=== PATIENT | male | born 1955 | race Caucasian/White ===

== ENCOUNTER 2022-04-22 18:37 | Emergency (ER) | payer OTHER, MEDICARE ==
[2022-04-22] MEDS ORDERED: HYDROcodone/Acetaminophen 5/325 mg Tablet ONE (21:53)
[2022-04-22] MEDS ORDERED: Ondansetron ODT 4 MG TAB ONE (21:53)
[2022-04-22] MEDS ORDERED: Oxymetazoline HCl 0.05% (30 ML BOT) ONE (22:19)
== END 2022-04-22 22:25 | disposition home or self-care (01) ==
LOC: ERS 18:37
DX: S02.32XA Fracture of orbital floor, left side, initial encounter for closed fracture (principal); S02.19XA Other fracture of base of skull, initial encounter for closed fracture; S02.2XXA Fracture of nasal bones, initial encounter for closed fracture; S60.212A Contusion of left wrist, initial encounter; V29.49XA Motorcycle driver injured in collision with other motor vehicles in traffic accident, initial encounter
CPT/HCPCS: 70450; 70486; 72125; Q0162